=== PATIENT | male | born 1965 | race Caucasian/White ===

== ENCOUNTER 2023-03-26 08:43 | Day surgery (SDC) | payer BC ==
[2023-03-25 15:33] VITALS: BMI 33.5
[2023-03-26] MEDS ORDERED: BUPIVACAINE HCL/EPINEPHRINE/PF 30 ML VIAL IJ ONE (09:27)
[2023-03-26] MEDS ORDERED: oxyCODONE HCL 5 MG TABLET PO PRN (09:47)
[2023-03-26] MEDS ORDERED: ONDANSETRON 4 MG/2 ML VIAL IVPUSH PRN (09:47)
[2023-03-26] MEDS ORDERED: MIDAZOLAM HCL 2 MG/2 ML SINGLE DOSE VIAL ONE (09:58)
[2023-03-26] MEDS ORDERED: LACTATED RINGERS SOLUTION 1,000 ML IV SCH (10:00)
[2023-03-26] MEDS ORDERED: PROPOFOL 20 ML ONE (10:03)
[2023-03-26] MEDS ORDERED: ceFAZolin SODIUM 1 GM VIAL ONE ×2 (10:17)
[2023-03-26] MEDS ORDERED: methylPREDNISolone ACET (DEPO) 40 MG/1 ML VIAL ONE (10:29)
[2023-03-26 12:02] VITALS: RESP 18
[2023-03-26 12:34] VITALS: TEMP 98
[2023-03-26 13:05] VITALS: BP 131/71; PULSE 75
== END 2023-03-26 13:08 | disposition home or self-care (01) ==
LOC: FASU 08:43
PROVIDERS: ATTEND Orthopaedic Surgery
PROC: 0SBD4ZZ Excision of Left Knee Joint, Percutaneous Endoscopic Approach (ICD-10-PCS; principal; 2023-03-26 10:21)
DX: S83.242A Other tear of medial meniscus, current injury, left knee, initial encounter (principal); M65.862 Other synovitis and tenosynovitis, left lower leg; M17.12 Unilateral primary osteoarthritis, left knee; X58.XXXA Exposure to other specified factors, initial encounter; Y93.9 Activity, unspecified; Y92.9 Unspecified place or not applicable
CPT/HCPCS: 94760